=== PATIENT | male | born 1995 | race Caucasian/White ===

== ENCOUNTER 2022-08-06 07:59 | Outpatient (CLI) | payer OTHER | END 2022-08-06 08:00 | disposition home or self-care (01) | LOC: TBSIIMAG 07:59 | PROVIDERS: ATTEND Family Medicine | DX: M23.91 Unspecified internal derangement of right knee (principal); M25.461 Effusion, right knee ==

== ENCOUNTER 2022-09-05 05:58 | Day surgery (SDC) | payer OTHER ==
[2022-09-04 08:14] VITALS: BMI 28.5
[2022-09-05] MEDS ORDERED: fentaNYL PF 100 MCG/2 ML SYRINGE ONE ×2 (06:11→08:06)
[2022-09-05] MEDS ORDERED: Midazolam HCl 2 mg/2 ml Vial ONE (06:20)
[2022-09-05] MEDS ORDERED: Dexamethasone 20 MG/5 ML VIAL ONE (06:40)
[2022-09-05] MEDS ORDERED: Ketorolac Tromethamine 30 MG/ML VIAL ONE (06:40)
[2022-09-05] MEDS ORDERED: Ondansetron PF 4 MG/2 ML Vial ONE (06:40)
[2022-09-05] MEDS ORDERED: PROPOFOL 200 MG/20 ML VIAL ONE (06:40)
[2022-09-05] MEDS ORDERED: Lidocaine 1% PF 5 ML VIAL ONE (06:50)
[2022-09-05] MEDS ORDERED: Bupivacaine HCl 0.5%/Epinephrine 1:200,000/PF 30 ml Vial ONE (06:50)
[2022-09-05] MEDS ORDERED: Sodium Chloride 0.9% 100 ML ONE (07:04)
[2022-09-05] MEDS ORDERED: CEFAZOLIN 2 GM VIAL ONE (07:04)
[2022-09-05] MEDS ORDERED: Bupivacaine PF 0.5% 30 ML VIAL ONE (08:05)
[2022-09-05] MEDS ORDERED: Lidocaine 2% PF 5 ML VIAL ONE (08:05)
[2022-09-05] MEDS ORDERED: fentaNYL 50 mcg/mL 1 mL Vial ONE ×4 (09:13→09:46)
== END 2022-09-05 11:48 | disposition home or self-care (01) ==
LOC: SDC 05:58
PROVIDERS: ATTEND Orthopaedic Surgery
PROC: 0SQC4ZZ Repair Right Knee Joint, Percutaneous Endoscopic Approach (ICD-10-PCS; principal; 2022-09-05)
DX: S83.211A Bucket-handle tear of medial meniscus, current injury, right knee, initial encounter (principal); X58.XXXA Exposure to other specified factors, initial encounter; Y99.0 Civilian activity done for income or pay
CPT/HCPCS: C1713; J1100; J1885; J2001; J2250; J2405; J2704; J3010; J3490; S0020